=== PATIENT | female | born 1965 | race Caucasian/White ===

== ENCOUNTER → 2017-04-23 | Outpatient (CLI) | payer OTHER ==
[~2017-04-23] MED LIST: ASPIR 8181 MG PO; EFFEXOR75 MG PO; ESTRACE 1MG TABL1 MG PO; FLOMAX 0.4MG C0.4 MG PO; GLYBURIDE PO; HYDROCODONE-APA1 TA1 PO; JANUVIA50 MG PO; LISINOPRIL 10MG10 MG PO; METFO PO; MOBIC15 MG PO; PYRIDIUM200 M2 PO; SIMVASTATIN20 MG PO; ZOFRAN ODT4 MG PO
--- NOTE | 2017-04-25 11:16 | RADIOLOGY REPORT PS360 ---
MRI-UP EXT ANY JNT W/O-RT HISTORY: Acute pain of the right shoulder with limited range of motion ACUTE PAIN OF RIGHT SHOULDER ORDERING PHYSICIAN: Bryant Combs MD PATIENT AGE: 52 years COMPARISON: None TECHNIQUE: Standard multiplanar multiecho sequences are performed without contrast. FINDINGS: There is complete tear of the right supraspinatus and infraspinatus tendons with retraction of the musculotendinous fibers. Subacromial stenosis is present with a downsloping acromion with hypertrophic change along the inferior surface of the acromion and moderate amount fluid in the subdeltoid region. Hypertrophic changes are present at the AC joint. No obvious labral tear. Bicipital tendon is in place and appears intact. The subscapularis and teres minor tendons do appear intact. Small amount fluid is present in the subcoracoid region. No obvious fracture or dislocation. There is some mild cortical irregularity of the greater tuberosity of the humeral head. IMPRESSION: 1. Complete tear of the supraspinatus and infraspinatus tendons with retraction of the musculotendinous fibers with subacromial stenosis and fluid in the subdeltoid region
== END ==
LOC: RAD 07:54
DX: M25.511 Pain in right shoulder (principal)